=== PATIENT | female | born 1985 | race Caucasian/White ===

== ENCOUNTER 2022-01-31 01:44 | Emergency (ER) | payer OTHER ==
[~2022-01-31] VITALS: Ht 170.2 cm; Wt 80.0 kg
[2022-01-31] MEDS ORDERED: TETANUS, DIPHTHERIA, PERTUSSIS VAC/PF 0.5ML (>10YR OLD) IM ONE ×2 (02:45→05:00)
[2022-01-31] MEDS ORDERED: HYDROCODONE/ACETAMINOPHEN 5/325MG TABLET PO ONE (02:45)
[2022-01-31] MEDS ORDERED: IBUP-2029 MT (04:55)
[2022-01-31] MEDS ORDERED: HYDROCODONE/ACETAMINOPHEN 5/325MG TABLET PO NR (05:00)
[2022-01-31 05:21] VITALS: BP 133/79
== END 2022-01-31 05:00 | disposition home or self-care (01) ==
LOC: ER 01:44
DX: S60.311A Abrasion of right thumb, initial encounter (principal); S61.301A Unspecified open wound of left index finger with damage to nail, initial encounter; V43.52XA Car driver injured in collision with other type car in traffic accident, initial encounter; Y93.89 Activity, other specified; Y92.410 Unspecified street and highway as the place of occurrence of the external cause
CPT/HCPCS: 29130; 71045; 72170; 73130; 90471; 90715; 93005; 99284